=== PATIENT | female | born 1955 | race Caucasian/White ===

== ENCOUNTER 2022-03-19 14:09 | Outpatient (CLI) | payer OTHER, MEDICAID, SELFPAY ==
--- NOTE | 2022-03-19 14:30 | XR_ITS ---
WS: [id number] DEXA (DUAL ENERGY X-RAY ABSORPTIOMETRY) Bone mineral density was performed using a [employer] machine. HISTORY: Checking density COMPARISON: None available. Lumbar spine BMD (L1-L4): 1.011 g/cm2 T score: -1.4 Z score: -0.2 Total hip BMD: Left: 0.656 g/cm2. T score: -2.8 Z score: -1.8 Right: 0.649 g/cm2. T score: -2.8 Z score: -1.8 10 year probability of a major osteoporotic fracture is 22.2%. XR/XR DEXA axial skeleton* 13091 IMPRESSION: OSTEOPOROSIS based upon the WHO classification for females.
== END 2022-03-19 14:10 | disposition home or self-care (01) ==
LOC: RAD 14:11
PROVIDERS: Visit Provider Internal Medicine
DX: M81.0 Age-related osteoporosis without current pathological fracture (principal); E21.0 Primary hyperparathyroidism
CPT/HCPCS: 77080

== ENCOUNTER 2022-05-13 08:31 | Outpatient (CLI) | payer OTHER, MEDICAID, SELFPAY ==
--- NOTE | 2022-05-13 08:42 | NM_ITS ---
WS: [id number] NUCLEAR MEDICINE PARATHYROID SESTAMIBI INDICATION: Hyperparathyroidism TECHNIQUE: 19.2 mCi technetium 99m sestamibi. Initial and delayed imaging with chin marker and supras ternal markers. FINDINGS: Normal initial salivary gland uptake. Asymmetric uptake involving the lower pole LEFT thyro id on the initial imaging. This is persistent on the delayed imaging suspicious for parathyroid adeno ma at the lower pole LEFT thyroid. Normal washout RIGHT thyroid. NM/NM parathyroid [id number] IMPRESSION: Suspected parathyroid adenoma lower pole LEFT thyroid above the sup rasternal notch.
== END 2022-05-13 08:32 | disposition home or self-care (01) ==
LOC: RAD 08:33
PROVIDERS: Visit Provider Internal Medicine
DX: M81.0 Age-related osteoporosis without current pathological fracture (principal); E21.0 Primary hyperparathyroidism
CPT/HCPCS: 78070; A9500

== ENCOUNTER → 2022-05-18 14:18 | Outpatient (BNVA) | payer MEDICARE, MEDICAID, SELFPAY | PROVIDERS: PCP Internal Medicine; Visit Provider Internal Medicine | DX: E21.0 Primary hyperparathyroidism (principal); E03.9 Hypothyroidism, unspecified; M81.0 Age-related osteoporosis without current pathological fracture; F41.9 Anxiety disorder, unspecified; N18.30 Chronic kidney disease, stage 3 unspecified | CPT/HCPCS: 99214 ==